=== PATIENT | male | born 1980 | race American Indian/Alaskan Native ===

== ENCOUNTER 2018-11-14 10:10 | Outpatient (CLI) | payer OTHER ==
--- NOTE | 2018-11-14 11:03 | XRay Report ---
XR spine lumbosacral 2-3V INDICATION / CLINICAL INFORMATION: low back pain, disability. COMPARISON: None available. FINDINGS: BONES/JOINT(S): No vertebral fracture. Minimal lumbar spine spondylosis with small anterior and later al osteophytes without any significant disc height loss. No spondylolysis or spondylolisthesis. Overa ll normal alignment. SOFT TISSUES: No significant abnormality. ADDITIONAL FINDINGS: None. Signer Name: Royal Jeffries MD Signed: 11/14/2018 10:59 AM Workstation Name: [id number]
== END 2018-11-14 10:11 | disposition home or self-care (01) ==
LOC: XRAY 10:10
PROVIDERS: ATTEND Internal Medicine
DX: Z02.71 Encounter for disability determination (principal); M25.78 Osteophyte, vertebrae
CPT/HCPCS: 72100